=== PATIENT | female | born 1970 | race Asian ===

== ENCOUNTER → 2016-05-07 | Outpatient (CLI) | payer MEDICAID | LOC: MC.RAD 11:20 | DX: Z12.31 Encounter for screening mammogram for malignant neoplasm of breast (principal) ==

== ENCOUNTER → 2017-11-04 | Outpatient (CLI) | payer SELFPAY | LOC: MC.RAD 11:14 | DX: Z12.31 Encounter for screening mammogram for malignant neoplasm of breast (principal) ==

== ENCOUNTER → 2020-05-24 | Outpatient (CLI) | payer BC ==
[~2020-05-24] MED LIST: ACYCLOVIR400 MG PO; NORCO 325 MG-51 TAB PO; SEPTRA DS 8001 TAB PO
== END ==
LOC: MC.RAD 12:53
DX: N60.01 Solitary cyst of right breast (principal)

== ENCOUNTER → 2022-04-03 | Outpatient (CLI) | payer BC | LOC: MC.RAD 14:32 | DX: Z12.31 Encounter for screening mammogram for malignant neoplasm of breast (principal) ==

== ENCOUNTER → 2023-04-30 | Outpatient (CLI) | payer OTHER | LOC: MC.RAD 11:45 | DX: Z12.31 Encounter for screening mammogram for malignant neoplasm of breast (principal) ==